=== PATIENT | male | born 1995 | race Caucasian/White ===

== ENCOUNTER 2017-10-04 13:27 | Emergency (ER) | payer OTHER, BC ==
[~2017-10-04] VITALS: Ht 172.7 cm; Wt 77.1 kg
[~2017-10-04 13:27] MED LIST: ADDERALL 30 MG30 MG PO; NOHOMEMEDICATIONS
[2017-10-04] MEDS ORDERED: PREDNISONE 20 M20 MG PO (14:08)
[2017-10-04] MEDS ORDERED: CORTIZONE-10 PL28 GM TOP (14:09)
[2017-10-04] MEDS ORDERED: BENADRYL25 MG PO (14:09)
[2017-10-04 14:24] VITALS: BP 140/80
== END 2017-10-04 14:26 | disposition home or self-care (01) ==
LOC: ER 13:27
DX: L23.7 Allergic contact dermatitis due to plants, except food (principal); F90.9 Attention-deficit hyperactivity disorder, unspecified type

== ENCOUNTER 2018-09-14 08:06 | Emergency (ER) | payer OTHER, BC ==
[~2018-09-14] VITALS: Ht 172.7 cm; Wt 77.1 kg
[~2018-09-14 08:06] MED LIST changes: +BENADRYL25 MG PO; +CORTIZONE-10 PL28 GM TOP; +PREDNISONE 20 M20 MG PO
[2018-09-14] MEDS ORDERED: NAPROSYN500 MG PO (08:43)
[2018-09-14] MEDS ORDERED: NORFLEX100 MG PO (08:43)
[2018-09-14 09:40] VITALS: BP 137/77
== END 2018-09-14 09:41 | disposition home or self-care (01) ==
LOC: ER 08:06
DX: S16.1XXA Strain of muscle, fascia and tendon at neck level, initial encounter (principal); F90.9 Attention-deficit hyperactivity disorder, unspecified type; X58.XXXA Exposure to other specified factors, initial encounter; Y93.89 Activity, other specified; Y92.89 Other specified places as the place of occurrence of the external cause; Y99.8 Other external cause status

== ENCOUNTER → 2020-01-10 | Outpatient (CLI) | payer OTHER, BC ==
[~2020-01-10] MED LIST changes: +NAPROSYN500 MG PO; +NORFLEX100 MG PO
== END ==
LOC: ULTRA 14:56
PROVIDERS: ATTEND Nurse Practitioner
DX: R22.9 Localized swelling, mass and lump, unspecified (principal)

== ENCOUNTER 2020-01-21 09:37 | Emergency (ER) | payer OTHER, BC ==
[~2020-01-21] VITALS: Ht 172.7 cm; Wt 68.0 kg
[2020-01-21 11:50] LABS: ABSOLUTE NEUTROPHILS 3.2 thou/uL (1.4-8.2); BASOPHILS 0.8 % (0.0-2.0); EOSINOPHILS 5.3 % (0.0-3.0); HEMATOCRIT 44.5 % (42.0-52.0); HEMOGLOBIN 15.5 gm/dL (14.0-18.0); LYMPHOCYTES 30.1 % (24.0-44.0); MCH 30.2 pg (26.0-34.0); MCHC 34.8 g/dL (28.0-37.0); MCV 86.9 fL (80.0-100.0); PLATELET COUNT 231 thou/uL (150-400); POLYS 53.8 % (36.0-66.0); RBC 5.12 mil/uL (4.50-6.00); RDW 12.3 % (10.5-14.5)
[2020-01-21 12:03] LABS: CALCIUM 9.5 mg/dL (8.5-10.1)
[2020-01-21 12:13] LABS: TOTAL BILIRUBIN 0.5 mg/dL (0.2-1.0); TOTAL PROTEIN 7.9 g/dL (6.4-8.2)
[2020-01-21 13:12] VITALS: BP 135/88
== END 2020-01-21 13:12 | disposition home or self-care (01) ==
LOC: ER 09:37
PROVIDERS: Emergency Medicine
DX: M54.2 Cervicalgia (principal); Z79.899 Other long term (current) drug therapy; Z20.828 Contact with and (suspected) exposure to other viral communicable diseases

== ENCOUNTER → 2020-01-29 | Outpatient (CLI) | payer OTHER, BC ==
[2020-01-29 15:47] LABS: ABSOLUTE NEUTROPHILS 5.8 thou/uL (1.4-8.2); BASOPHILS 0.5 % (0.0-2.0); EOSINOPHILS 2.2 % (0.0-3.0); HEMATOCRIT 50.4 % (42.0-52.0); HEMOGLOBIN 16.9 gm/dL (14.0-18.0); LYMPHOCYTES 21.9 % (24.0-44.0); MCH 29.4 pg (26.0-34.0); MCHC 33.5 g/dL (28.0-37.0); MONOCYTES 6.7 % (1.0-8.0); PLATELET COUNT 319 thou/uL (150-400); POLYS 68.7 % (36.0-66.0); RBC 5.73 mil/uL (4.50-6.00); RDW 12.3 % (10.5-14.5); WBC 8.5 thou/uL (4.0-11.0)
[2020-01-30 07:08] LABS: ANTI-EBNA >600.0 U/mL (0.0-17.9); ANTI-VCA/IgG <18.0 U/mL (0.0-17.9); ANTI-VCA/IgM <36.0 U/mL (0.0-35.9)
== END ==
LOC: CAT 15:12
PROVIDERS: ATTEND Nurse Practitioner
DX: R59.0 Localized enlarged lymph nodes (principal)